=== PATIENT | female | born 1940 | race Caucasian/White ===

== ENCOUNTER 2017-02-17 12:35 | Observation (INO) | payer OTHER, MEDICARE ==
[~2017-02-17] VITALS: Ht 166.4 cm; Wt 52.2 kg
--- NOTE | 2017-02-17 13:04 | ED AMS/SEIZURE/WEAK/DIZZY ---
See Addendum History of Present Illness General Chief Complaint: General Adult Stated Complaint: PT NEED TO CHECK BLOOD COUNT Source: patient, family, old records Exam Limitations: no limitations Vital Signs & Intake/Output Vital Signs & Intake/Output Vital Signs Date Time Temp Pulse Resp B/P B/P Pulse O2 O2 Flow FiO2 Mean Ox Delivery Rate 02/18 0154 97.9 02/17 2235 97.8 62 16 133/69 98 Nasal 2.0L Cannula 02/17 2117 81 16 139/65 95 Nasal 2.0L Cannula 02/17 2030 74 15 134/66 99 Nasal 2.0L Cannula 02/17 1935 97.4 68 15 110/56 95 Nasal 2.0L Cannula 02/17 1918 97.2 71 16 110/59 96 Nasal 2.0L Cannula 02/17 1855 97.0 71 18 117/60 98 Nasal 2.0L Cannula 02/17 1830 97.5 73 17 116/57 97 Nasal 2.0L Cannula 02/17 1813 97.2 72 18 114/58 96 Nasal 2.0L Cannula 02/17 1755 97.5 85 15 121/60 98 Nasal 2.0L Cannula 02/17 1645 97.8 80 16 112/55 99 Nasal 4.0L Cannula 02/17 1545 97.8 82 16 112/50 99 Non 2.0L ReBreather 02/17 1540 97.2 85 16 111/54 100 Nasal 2.0L Cannula 02/17 1528 97.3 83 18 116/55 98 Nasal 2.0L Cannula 02/17 1450 96.7 81 20 113/55 87 Room Air 02/17 1250 98.5 88 18 115/56 84 Room Air ED Intake and Output 02/18 0000 02/17 1200 Intake Total Output Total Balance Patient 115 lb Weight Allergies Uncoded Allergies: "SOME ANTIBIOTIC" (Mild, RASH 02/17/17) Triage Note: PT HERE VISITING FAMILY , PT HAS A HISTORY OF LEUKEMIA STATES THAT SHE GETS BLOOD TRANSFUSIONS EVERY TWO WEEKS. PT COMES IN TODAY AND COMPLAINS OF INCREASED WEAKNESS AND SOB. PT PALE O2 SAT 84 % ON RA . LAST TRANSFUSION LAST WEEK, 1 UNIT PLATELETS AND 1 UNIT PRBC. Triage Nurses Notes Reviewed? yes Onset: Abrupt Duration: day(s): (3), constant Timing: recent history Injury Environment: home Severity: mild Severity Numbers: 6 No Modifying Factors: none Associated Symptoms: denies HPI: 76-year-old female with history of myelodysplastic syndrome and crying transfusions every 1-2 weeks presents to ER complaining of feeling weak, the patient's last transfusion was one week ago she is from [place] visiting family currently. Patient states that with exertion she feels short of breath and weaker she denies chest pain dizziness lightheadedness rest. Patient is not currently on any chemotherapy. She states that she's not be admitted she is here to have her blood counts checked and that is all. No modifying factors or associated symptoms otherwise. The patient is unknown what her baseline H&H is however she states she normally gets transfusions when it drops below 8. The patient states that she was told she has 6 months to a year to live. she reports to having a spontanous r sided nose bleed 2 nights ago, no trauma, no other bleeding since. (JOSE D ONEILL) Past History Travel History Traveled to [place] past 21 day No Medical History Any Pertinent Medical History? 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 No (JOSE D ONEILL) Review of Systems Review of Systems Constitutional: Reports: see HPI. All Other Systems: Reviewed and Negative Comments Review of systems: See HPI, All other systems negative. Constitutional, no chills no fever, malaise HEENT: no sore throat no congestion, cardio: no chest pain Skin: no rashes, no change in skin Respiratory: dyspnea no cough no sputum no hemoptysis GI: No nausea no vomiting, no diarrhea, no bloating/constipation : No dysuria No hematuria, no frequency, no discharge Muscle skeletal: No joint pain, no joint swelling, no back pain, no neck pain, Neurologic: No numbness no headache Psych: No stress Heme/endocrine: bruising bleeding Immunology: No lymphadenopathy (JOSE D ONEILL) Physical Exam Physical Exam General Appearance: well developed/nourished, alert, awake Comments: Well-developed well-nourished person in no acute distress HEENT: Normal EENT exam; PERRL, EOMI,HEAD is atraumatic. moist mucous membranes. Neck: Supple, normal range of motion Back: Nontender, Full range of motion Cardiovascular: Regular rate and rhythms no murmurs rubs Respiratory: Chest nontender.There were no bony deformities, no asymmetry. No respiratory distress. Patient speaking in full complete sentences. Breath sounds clear to auscultation bilaterally: NO W/R/R Abdomen: Soft, nontender nondistended, no appreciable organomegaly. Normal bowel sounds. No rebound/guarding, Extremity: No edema, full range of motion of extremities, normal and equal pulses bilaterally, 5 out of 5 strength noted to bilateral upper and lower extremities Neuro: Alert oriented x3, motor sensory normal. There were no obvious focal neurologic abnormalities. Skin: No appreciable rash on exposed skin, skin is warm and dry. Psych: Mood and affect is normal, memory and judgment is normal. Core Measures ACS in differential dx? No CVA/TIA Diagnosis: No Severe Sepsis Present: No Septic Shock Present: No (SUSANNE EDOUARD,JOSE D) Progress Differential Diagnosis: anemia, dehydration, electrolyte imbalance, GI bleed, hypoglycemia Plan of Care: Orders Procedure Date/time Status Heart Healthy Diet 02/17 D Active BLOOD PRODUCT PICKUP 02/17 1855 Active BLOOD PRODUCT PICKUP 02/[address] in observation 02/17 1642 Active Patient Data 02/17 1642 Active Patient Data 02/17 1553 Active Vital Signs 02/17 1553 Active Code Status 02/17 1553 Active CONTINUING CARE PLACEMENT 02/17 1553 Active BLOOD PRODUCT PICKUP 02/17 1509 Active PLATELET DOSE (5 Units Pooled) 02/17 1410 Complete LEUKOCYTE POOR (PACKED CELLS) 02/17 1409 Active Intake & Output 02/17 1323 Active MISTAKE 02/17 1303 Active PARTIAL THROMBOPLASTIN TIME 02/17 1302 Complete PROTHROMBIN TIME 02/17 1302 Complete COMPREHENSIVE METABOLIC PANEL 02/17 1302 Complete CBC WITHOUT DIFFERENTIAL 02/17 1302 Complete TYPE & SCREEN (NOT X-MATCH) 02/17 1302 Complete Laboratory Tests 02/17/17 1316: Anion Gap 6, Estimated GFR > 60, BUN/Creatinine Ratio 28.6 H, Glucose 108 H, Calcium 8.7, Total Bilirubin 0.8, AST 37 H, ALT 56 H, Alkaline Phosphatase 44, Total Protein 5.9 L, Albumin 3.0 L, Globulin 2.9, Albumin/Globulin Ratio 1.0 L, PT 13.1 H, INR 1.25 H, APTT 28, CBC w Diff MAN DIFF ORDERED, RBC 2.44 L, MCV 85.4, MCH 28.8, RDW 14.8 H, MPV 7.9, Gran % 7.7 L, Lymphocytes % 82.2 H, Monocytes % 10.0 H, Eosinophils % 0.1, Basophils % 0 L, Absolute Granulocytes 0.1 L, Segmented Neutrophils 6 L, Band Neutrophils 2, Absolute Lymphocytes 0.6 L, Lymphocytes 75 H, Monocytes 1 L, Absolute Monocytes 0.1 L, Absolute Eosinophils 0, Absolute Basophils 0, Metamyelocytes 1, Blast Cells 15 H, Platelet Estimate DECREASED, Hypochromic-Microcytic 2+, Anisocytosis 1+, Elliptocytes , PUBS MCHC 33.7 Labs ordered. Case discussed with Dr. ladd Patient seen and evaluated by Dr. LADD agrees with plan-patient is in agreement and will stay for ED observation overnight after discussion with the patient and her family. 02/17/2017 3:18:16 PM patient resting in no apparent distress denies any complaints at this time saturating 97% on 2 L Patient's daughter in law can be reached at [phone] (JOSE D ONEILL) Initial ED EKG: none Hand-Off Endorsed To: JENNIFER BILLS,RANDY Barriga Endorsed Time: 1899 Pending: other (reeval) (JOSE D ONEILL) Departure Departure Time of Disposition: 1517 Disposition: STILL A PATIENT Condition: Stable Clinical Impression Primary Impression: Chronic anemia Secondary Impressions: Myelodysplastic disease, Thrombocytopenia Additional Instructions: Follow up with your primary care physician, oncologist on Monday return to ER anytime sooner with any concerns. Departure Forms: Customer Survey General Discharge Information Observation Note Spoke With: SHARMAINE LADD DO ([facility]) Physician Advisor Notified: SHARMAINE LADD DO Place Patient In: ED Observation Rationale for Observation: My rational for observation is as follows patient will require at least 5 units of platelets 2 units of RBCs, given history of presenting illness she is at high risk for spontaneous hemorrhage, trend labs telemetry monitoring while transfusion takes place premature discharge would BE medically harmful (JOSE D ONEILL) PA/INDUSTRIAL HYGENIST Co-Sign Statement Statement: ED Attending supervision documentation- [X] I saw and evaluated the patient. I have also reviewed all the pertinent lab results and diagnostic results. I agree with the findings and the plan of care as documented in the PA's/INDUSTRIAL HYGENIST's documentation. [] I have reviewed the ED Record and agree with the PA's/INDUSTRIAL HYGENIST's documentation. [] Additions or exceptions (if any) to the PAs/INDUSTRIAL HYGENIST's note and plan are summarized below: [] (SHARMAINE LADD DO) PA/INDUSTRIAL HYGENIST Co-Sign Statement Statement: ED Attending supervision documentation- [] I saw and evaluated the patient. I have also reviewed all the pertinent lab results and diagnostic results. I agree with the findings and the plan of care as documented in the PA's/INDUSTRIAL HYGENIST's documentation. [x] I have reviewed the ED Record and agree with the PA's/INDUSTRIAL HYGENIST's documentation. [] Additions or exceptions (if any) to the PAs/INDUSTRIAL HYGENIST's note and plan are summarized below: [] (JENNIFER BILLS,RANDY Barriga) ED Attending Observation Initial Observation Note: I have seen and personally examined MADINA TRUJILLO on 02/17/17 at 1555. I agree with the current emergency department documentation. The disposition (admission or discharge) is uncertain at this time, she needs a period of observation for the following reason(s): [The patient needs to be placed in observation for 2 units of blood, platelets, monitoring for complications of the transfusion which she has had before, CBC after transfusion] The ED Nurse caring for this patient has been personally informed as to what the patient is being observed for. Observation Re-Evaluation: I have reevaluated MADINA TRUJILLO on 02/17/17 at 1818. The physical findings that support the continued need to observe this patient include [patient receiving a blood transfusion. She will be signed out to Dr. Roger at 7 PM.]. (SHARMAINE LADD DO)
[2017-02-17 13:35] LABS: ABSOLUTE BASOPHIL COUNT 0 /CUMM (0.0-0.2); ABSOLUTE EOSINOPHIL COUNT 0 /CUMM (0.0-0.7); ABSOLUTE LYMPH COUNT 0.6 /CUMM (1.2-3.4); ABSOLUTE MONOCYTE COUNT 0.1 /CUMM (0.10-0.60); BASOPHIL % 0 % (0.0-2.0); MEAN CORPUSCULAR VOLUME 85.4 FL (81.0-99.0)
[2017-02-17 13:38] LABS: PT 13.1 SEC (9.4-12.5); PTT 28 SEC (25-37)
[2017-02-17 13:44] LABS: ABSOLUTE GRANULOCYTE CT 0.1 /CUMM (1.4-6.5); EOSINOPHIL % 0.1 % (0-5); GRANULOCYTE % 7.7 % (42.2-75.2); MEAN CORPUSCULAR HGB 28.8 PG (27.0-31.0); MEAN CORPUSCULAR HGB CONC 33.7 G/DL (33.0-37.0); MEAN PLATELET VOLUME 7.9 FL (7.4-10.4); RBC DISTRIBUTION WIDTH 14.8 % (11.5-14.5); RED BLOOD CELL CT 2.44 /CUMM (4.20-5.40)
[2017-02-17 13:48] LABS: HEMATOCRIT 20.8 % (37-47); PLATELET COUNT 12 /CUMM (130-400); WHITE BLOOD CELL COUNT 0.7 /CUMM (4.8-10.8)
[2017-02-18 06:39] LABS: ABSOLUTE BASOPHIL COUNT 0 /CUMM (0.0-0.2); ABSOLUTE EOSINOPHIL COUNT 0 /CUMM (0.0-0.7); ABSOLUTE GRANULOCYTE CT 0 /CUMM (1.4-6.5); ABSOLUTE LYMPH COUNT 0.3 /CUMM (1.2-3.4); ABSOLUTE MONOCYTE COUNT 0 /CUMM (0.10-0.60); BASOPHIL % 0 % (0.0-2.0)
[2017-02-18 07:03] LABS: EOSINOPHIL % 0.1 % (0-5); GRANULOCYTE % 7.3 % (42.2-75.2); MEAN CORPUSCULAR HGB 29.5 PG (27.0-31.0); MEAN CORPUSCULAR HGB CONC 34.6 G/DL (33.0-37.0); MEAN CORPUSCULAR VOLUME 85.4 FL (81.0-99.0); MEAN PLATELET VOLUME 8.6 FL (7.4-10.4); RBC DISTRIBUTION WIDTH 14.4 % (11.5-14.5)
[2017-02-18 07:06] LABS: HEMATOCRIT 28.2 % (37-47); RED BLOOD CELL CT 3.31 /CUMM (4.20-5.40)
[2017-02-18 07:08] LABS: PLATELET COUNT 18 /CUMM (130-400); WHITE BLOOD CELL COUNT 0.3 /CUMM (4.8-10.8)
[2017-02-18 08:53] VITALS: BP 124/74
== END 2017-02-18 20:19 ==
LOC: ERH 12:35 → ERHI 16:42
PROVIDERS: Pediatrics; Physician Assistant Medical; ADMIT Emergency Medicine
DX: D46.9 Myelodysplastic syndrome, unspecified (principal); F41.9 Anxiety disorder, unspecified; F32.9 Major depressive disorder, single episode, unspecified; Z85.6 Personal history of leukemia; D69.6 Thrombocytopenia, unspecified
CPT/HCPCS: 86920; 96374; 99291; J2930; P9016; P9031